=== PATIENT | female | born 1985 | race Hispanic/Latino ===

== ENCOUNTER 2025-05-23 22:29 | Emergency (ER) | payer SELFPAY ==
[~2025-05-23] VITALS: Ht 154.9 cm; Wt 77.1 kg
[2025-05-23 22:59] LABS: BASOPHILS % 0.7 % (0.0-1.0); EOSINOPHILS % 3.5 % (0.0-6.0); LYMPHOCYTES % 43.5 % (18.0-39.1); MONOCYTES % 9.1 % (4.4-11.3); NEUTROPHILS % 43.0 % (38.7-80.0); RED CELL DISTRIBUTION WIDTH 13.3 % (11.7-14.4)
[2025-05-23 23:12] LABS: INR 0.91
[2025-05-23 23:20] LABS: EST GLOMERULAR FILTRATION RATE 103.0 ML/MIN (>=60)
[2025-05-23] MEDS: SODIUM CHLORIDE 0.9% 1000ML 1,000 ML IV STA (23:25)
[2025-05-24] MEDS: KETOROLAC TROMETHAMINE 30 MG/ML VIAL IV STA ×2 (00:59→02:43)
[2025-05-24] MEDS ORDERED: SODIUM CHLORIDE 0.9% 200 ML ONE (02:54)
[2025-05-24] MEDS ORDERED: IOPAMIDOL 370 MG/ML 100 ML INFUS..BTL INJ ONE (02:54)
[2025-05-24 03:40] VITALS: PULSE 76; RESP 18; TEMP 98.1; O2SAT 100
== END 2025-05-24 03:44 | disposition home or self-care (01) ==
LOC: ER 22:36
DX: R20.0 Anesthesia of skin (principal); M25.511 Pain in right shoulder; E04.2 Nontoxic multinodular goiter; F17.210 Nicotine dependence, cigarettes, uncomplicated
CPT/HCPCS: 36415; 70450; 70496; 70498; 71045; 73030; 80053; 81025; 82550; 83690; 83880; 84484; 84702; 85025; 85610; 93005; 99284; J1885; J7030; J7050; Q9967